=== PATIENT | male | born 1990 ===

== ENCOUNTER 2022-02-17 10:35 | Emergency (ER) | payer SELFPAY ==
[~2022-02-17] VITALS: Ht 165.1 cm; Wt 61.4 kg
[2022-02-17 11:00] VITALS: BP 114/72; PULSE 72; TEMP 97.6
[2022-02-17] MEDS ORDERED: TRIAMCINOLONE A15 GM TP ×2 (11:33→11:58)
== END 2022-02-17 12:00 | disposition home or self-care (01) ==
LOC: COL.ER 10:35
DX: R21 Rash and other nonspecific skin eruption (principal); F17.200 Nicotine dependence, unspecified, uncomplicated; Z28.310 Unvaccinated for COVID-19